=== PATIENT | female | born 1950 | race Caucasian/White ===

== ENCOUNTER → 2019-02-11 | Outpatient (CLI) | payer BC ==
[2019-02-13 15:07] LABS: HPV 16 Negative (Negative); HPV 18 Negative (Negative); HPV OTHER HR TYPES Negative (Negative)
== END | disposition home or self-care (01) ==
LOC: LAB SHORT 16:29 → LAB 16:29
PROVIDERS: Obstetrics & Gynecology Gynecology
DX: Z91.89 Other specified personal risk factors, not elsewhere classified (principal)
CPT/HCPCS: 87624; G0123

== ENCOUNTER 2020-09-14 11:53 | Day surgery (SDC) | payer BC ==
[~2020-09-14] VITALS: Ht 157.5 cm; Wt 70.4 kg
[~2020-09-14 11:53] MED LIST: AMBIEN5 MG PO; ASPIR 8181 MG PO; Bisoprolol Fumar5 MG PO; Crestor40 MG PO; DULO30 PO; Flonase 0.05% N16 GM; LISI5 PO; OLOPATADINE HCL5 ML; OMEP20ER PO
[2020-09-14] MEDS ORDERED: ZYRTEC10 M2 (12:22)
== END 2020-09-14 14:05 | disposition home or self-care (01) ==
LOC: ORSCSDS 11:53
PROVIDERS: Internal Medicine Gastroenterology
PROC: 0DBH8ZX Excision of Cecum, Via Natural or Artificial Opening Endoscopic, Diagnostic (ICD-10-PCS; principal; 2020-09-14 13:00)
DX: Z12.11 Encounter for screening for malignant neoplasm of colon (principal); D12.0 Benign neoplasm of cecum; K57.30 Diverticulosis of large intestine without perforation or abscess without bleeding; Z86.010 Personal history of colon polyps; G47.33 Obstructive sleep apnea (adult) (pediatric); I10 Essential (primary) hypertension; Z79.82 Long term (current) use of aspirin; Z79.899 Other long term (current) drug therapy
CPT/HCPCS: 88305; J2704; J7120

== ENCOUNTER 2022-01-06 18:01 | Inpatient (IN) | payer BC, MEDICARE ==
[~2022-01-06] VITALS: Ht 157.5 cm; Wt 72.0 kg
[~2022-01-06 18:01] MED LIST changes: +ZYRTEC10 M2 PO
[2022-01-06 18:34] LABS: BASOPHILS ABSOLUTE AUTO 0.11 K/mm3 (0.00-0.23); BASOPHILS PERCENT AUTO 1 % (0-2); EOSINOPHILS ABSOLUTE AUTO 0.47 K/mm3 (0.00-0.68); EOSINOPHILS PERCENT AUTO 5 % (0-6); Hemoglobin 13.5 g/dL (11.5-16.0); IMMATURE GRAN ABSOLUTE AUTO 0.04 K/mm3 (0.00-0.10); IMMATURE GRAN PERCENT AUTO 0 % (0-1); LYMPHOCYTES ABSOLUTE AUTO 2.42 K/mm3 (0.84-5.20); LYMPHOCYTES PERCENT AUTO 24 % (21-46); MONOCYTES ABSOLUTE AUTO 0.68 K/mm3 (0.16-1.47); MONOCYTES PERCENT AUTO 7 % (4-13); Mean Corpuscular HGB 31.2 pg (26.0-34.0); Mean Corpuscular HGB Conc 32.9 g/dL (31.5-36.5); Mean Corpuscular Volume 95 fL (80-100); Mean Platelet Volume 9.1 fL (9.1-12.4); NEUTROPHILS ABSOLUTE AUTO 6.52 K/mm3 (1.96-9.15); NEUTROPHILS PERCENT AUTO 64 % (41-73); Platelet Count 182 K/mm3 (150-400); RDW Coefficient Variation 13.2 % (11.7-14.2); RDW Standard Deviation 46.2 fL (35.1-46.3); Red Blood Cell Count 4.33 M/mm3 (3.80-5.20); White Blood Cell Count 10.24 K/mm3 (4.00-11.30)
[2022-01-06 19:09] LABS: Albumin, Blood 3.4 g/dL (3.4-5.0); Bilirubin, Total 0.3 mg/dL (0.1-1.0); Bun/Creatinine Ratio 19.6 (12.0-20.0); Calcium, Blood 8.7 mg/dL (8.5-10.1); Creatinine, Blood 1.07 mg/dL (0.40-1.00); Globulin, Blood 3.3 g/dL (2.2-4.0); Potassium, Blood 4.2 mmol/L (3.5-5.5); Total Protein, Blood 6.7 g/dL (6.4-8.2)
[2022-01-06 23:46] LABS: CPK Creatine Kinase 174 U/L (26-193)
--- NOTE | 2022-01-07 00:24 | NUR ---
PT ARRIVED TO MEDICAL FLOOR AT 2356 WITH BELONGINGS AND ACCOMPANIED BY . NO C/O BLURRED OR LOSS OF VISION AT THIS TIME. NO C/O CP. TELE MONITOR PLACED. ORDER FOR STAT CT; PT TRANSPORTED VIA WHEELCHAIR AND AMBULATED TO CT FOR IMAGING. CALL FROM HEMATOLOGY WITH CRITICAL RESULTS OF TROPONIN OF 539 TRENDING UP FROM 507 WHEN LAST CHECKED. CALL PLACED TO DR ROME.
--- NOTE | 2022-01-07 06:43 | NUR ---
SECURITY SERVICES SPECIALIST SUMMARY: A&Ox4. PLEASANT AND COOPERATIVE WITH CARE. STAT CT DONE LAST NIGHT NEGATIVE FOR INTRACRANIAL PROCESS OR ISCHEMIA. TROPONINS ELEVATED AGAIN LAST NIGHT; DR ROME NOTIFIED. FURTHER WORKUP ORDERED BY PROVIDER FOR THIS AM. NS RUNNING @ 75mL/hr TKO. VSS. TELE NORMAL SINUS RHYTHM WITHOUT INCIDENT. WILL REPORT TO ONCOMING RN.
[2022-01-07 07:37] LABS: BASOPHILS ABSOLUTE AUTO 0.08 K/mm3 (0.00-0.23); BASOPHILS PERCENT AUTO 1 % (0-2); EOSINOPHILS PERCENT AUTO 5 % (0-6); Hemoglobin 13.6 g/dL (11.5-16.0); IMMATURE GRAN ABSOLUTE AUTO 0.03 K/mm3 (0.00-0.10); IMMATURE GRAN PERCENT AUTO 0 % (0-1); LYMPHOCYTES ABSOLUTE AUTO 2.72 K/mm3 (0.84-5.20); LYMPHOCYTES PERCENT AUTO 28 % (21-46); MONOCYTES ABSOLUTE AUTO 0.56 K/mm3 (0.16-1.47); MONOCYTES PERCENT AUTO 6 % (4-13); Mean Corpuscular HGB 31.6 pg (26.0-34.0); Mean Corpuscular HGB Conc 33.2 g/dL (31.5-36.5); Mean Corpuscular Volume 95 fL (80-100); NEUTROPHILS ABSOLUTE AUTO 5.98 K/mm3 (1.96-9.15); NEUTROPHILS PERCENT AUTO 61 % (41-73); Platelet Count 169 K/mm3 (150-400); RDW Coefficient Variation 13.2 % (11.7-14.2); RDW Standard Deviation 46.6 fL (35.1-46.3); Red Blood Cell Count 4.31 M/mm3 (3.80-5.20); White Blood Cell Count 9.87 K/mm3 (4.00-11.30)
[2022-01-07 07:55] LABS: Albumin, Blood 3.1 g/dL (3.4-5.0); Albumin/Globulin Ratio 0.9 (0.8-1.8); Bilirubin, Total 0.4 mg/dL (0.1-1.0); Bun/Creatinine Ratio 16.8 (12.0-20.0); CPK Creatine Kinase 143 U/L (26-193); Calcium, Blood 8.1 mg/dL (8.5-10.1); Creatinine, Blood 1.01 mg/dL (0.40-1.00); Globulin, Blood 3.3 g/dL (2.2-4.0); Total Protein, Blood 6.4 g/dL (6.4-8.2)
[2022-01-07 12:13] LABS: Source, Urine Clean Catch
[2022-01-07 12:15] LABS: Bilirubin, Urine Neg (Neg); Blood, Urine 2+ (Neg); Glucose Qualitative, Urine Neg (Neg); Ketones, Urine Neg (Neg); Leukocyte Esterase, Urine Neg (Neg); Nitrite, Urine Neg (Neg); Protein, Urine Neg (Neg); Specific Gravity, Urine 1.005 (1.003-1.022); Urobilinogen, Urine NORM (Normal)
[2022-01-07 12:21] LABS: Appearance, Urine Clear (Clear); Color, Urine Pale Yellow (P-Yellow)
[2022-01-07 12:23] LABS: Bacteria Few /hpf; Squamous Epithelial Cells Few /hpf (Few); White Blood Cells, Urine 0-2 /hpf (0-5)
[2022-01-07 12:37] LABS: C-Reactive Protein, High Sens. 3.2 mg/L (0.000-3.000)
[2022-01-07 12:38] LABS: Thyroid Stimulating Hormone 1.71 uIU/mL (0.360-4.800)
--- NOTE | 2022-01-07 17:24 | NUR ---
SUMMARY PT RESTING IN BED VISITING WITH HER SPOUSE, PT HAS BEEN PLEASANT AND COOPERATIVE WITH CARE T/O THE DAY, DENIES ANY CHEST PAIN, SOB, OR VISION CHANGES, PT UP WITH MIN ASSIST, HAS BEEN SEEN BY MANA VELOZ AND CHEY, PLAN IS FOR CARDIAC CATH IN AM, VSS WILL CONT TO MONITOR
--- NOTE | 2022-01-07 23:51 | NUR ---
CALL FROM PCU: 6-BEAT RUN OF V-TACH AT 2029 AND 5 BEATS OF VENTRICULAR BIGEMINY AT 2235. PT SLEEPING WHEN CHECKED ON, BUT WAS NOTED TO BE SNORING. REPORTS WEARING CPAP AT HOME BUT DID NOT "WANT TO WORRY ABOUT IT" WHEN ADMITTED LAST NIGHT. CALL TO HOSPITALIST: GIVE METOPROLOL TARTRATE 25MG NOW, CHECK BMP AND MAGNESIUM IN AM AND ORDERED CONTINUOUS PULSE-OX WHILE SLEEPING. IF PT DESATS OR BECOMES SYMPTOMATIC, WILL CONSIDER ADDITION OF OXYGEN THERAPY FOR CPAP. PT UPDATED. CHARGE NURSE NOTIFIED.
--- NOTE | 2022-01-08 04:44 | NUR ---
VETERINARY TECHNOLOGIST SUMMARY: A&Ox4. PLEASANT AND COOPERATIVE WITH CARE. VSS. TELE REPORTED 6-BEAT RUN OF V-TACH AT 2029 AND 5-BEAT RUN OF VENTRICULAR BIGEMINY AT 2235. ASYMPTOMATIC BUT WAS NOTED TO BE COUGHING DURING FIRST EPISODE AND SNORING, HEAVILY DURING SECOND EPISODE. SHE DOES USE CPAP AT HOME BUT DID NOT WANT TO USE WHILE HERE. GIVEN METOPROLOL TARTRATE 25MG AT 0000 AND CONTINUOUS BI-OX ORDERED WHILE SLEEPING PER HOSPITALIST AND LABS WILL BE CHECKED THIS AM. HAS BEEN NPO SINCE MIDNIGHT IN ANTICIPATE OF LEFT HEART DIRECTOR OF UNDERGRADUATE ADMISSIONS TODAY. ADMINISTERED ALPRAZOLAM 0.5MG FOR ANXIETY LAST NIGHT WHICH HELPED HER SLEEP THROUGHOUT THE NIGHT. WILL REPORT TO ONCOMING RN.
[2022-01-08 05:41] LABS: Bun/Creatinine Ratio 22.7 (12.0-20.0); Calcium, Blood 8.2 mg/dL (8.5-10.1); Creatinine, Blood 0.93 mg/dL (0.40-1.00); Magnesium, Blood 2.2 mg/dL (1.6-2.4); Potassium, Blood 3.8 mmol/L (3.5-5.5)
--- NOTE | 2022-01-08 07:49 | NUR ---
PATIENT TO PRODUCTION TEAM MEMBER PATIENT ALERT, ORIENTED, AND INDEPENDENT IN ROOM. DENIES CHEST PAIN, NAUSEA, AND SHORTNESS OF BREATH. PATIENT TRANSFERED TO PRODUCTION TEAM MEMBER FOR ANGIO.
--- NOTE | 2022-01-08 10:42 | NUR ---
Received telephone report from Sergio Ayers on medical. patient to labor/excavator this am. Post labor/excavator, pt to room at approx 0950, bedisde report given. Pt oriented to room and call light. Alert, orientedx4; calm and cooperative with care. Pt reports a headache, medicated x1 per orders. Pt denies chest pain/pressure, sob, nausea, dizziness and numb/tingling. tele sinus 60-70, bp elevated but stable. Ls clear t/o, spo2 >94% on ra, breahting even and unlabored. Abd soft nonteder normoactive bt t/o. TR band in place to right radial site, bruising and hematoma noted to site, outlined, no bleeding noted. Fingers blue tinged, per report this had improved, pt denies numb/tingling to site, cap refill wnl. vss. No other acute changes noted. Will continue to monitor.
[2022-01-08] MEDS ORDERED: AMLO5 PO (14:00)
[2022-01-08] MEDS ORDERED: FAMO20 PO (14:01)
[2022-01-08] MEDS ORDERED: CLOP75 PO (14:01)
[2022-01-08] MEDS ORDERED: PANT40 PO (14:02)
--- NOTE | 2022-01-08 16:45 | NUR ---
Discharge Summary TR band removed per orders. Replaced with tegaderm. Bruising noted starting to spread, hematoma noted, not spreading. No bleeding noted. Pt reports tenderness to right radial site. Bp elevated, notified Dr Bedoya, medicated with norvasc, bp trending down. Other vss. No other acute changes noted. Clarified home prescription for pepcid and protonix, new orders to remove pepcid. Educdated pt and spouse on discharge instrucitons, follow up appointments and medications. Prescriptions faxed to [facility] per patient request. Pt left via wheelchair at approx [phone].
[2022-01-11 12:07] LABS: ANTIMYELOPEROXIDASE (MPO) ABS <0.2 units (0.0-0.9); ANTIPROTEINASE 3 (PR-3) ABS <0.2 units (0.0-0.9); ATYPICAL PANCA <1:20 titer (Neg:<1:20); CYTOPLASMIC (C-ANCA) <1:20 titer (Neg:<1:20); PERINUCLEAR (P-ANCA) <1:20 titer (Neg:<1:20)
[2022-01-12 18:10] LABS: ANCA BY IFA (RDL) Negative (Negative); ANTI-MPO AB (RDL) <20 Units (<20); ANTI-PR-3 AB (RDL) <20 Units (<20)
== END 2022-01-08 16:28 | disposition home or self-care (01) | DRG 123 ==
LOC: ER 18:01 → MEDS 21:48 → PCU 01-07 14:15 → MEDS 01-07 14:15 → PCU 01-07 14:15 → MEDS 01-07 21:49 → PCU 01-08 08:57
PROVIDERS: Internal Medicine; Internal Medicine Cardiovascular Disease; Nurse Practitioner Acute Care; Student in an Organized Health Care Education/Training Program; ADMIT Internal Medicine
PROC: 4A023N7 Measurement of Cardiac Sampling and Pressure, Left Heart, Percutaneous Approach (ICD-10-PCS; principal; 2022-01-08)
PROC: B2111ZZ Fluoroscopy of Multiple Coronary Arteries using Low Osmolar Contrast (ICD-10-PCS; 2022-01-08)
PROC: B240ZZ3 Ultrasonography of Single Coronary Artery, Intravascular (ICD-10-PCS; 2022-01-08)
DX: G45.3 Amaurosis fugax (principal); G81.94 Hemiplegia, unspecified affecting left nondominant side; R77.8 Other specified abnormalities of plasma proteins; I10 Essential (primary) hypertension; E78.00 Pure hypercholesterolemia, unspecified; I34.1 Nonrheumatic mitral (valve) prolapse; F41.8 Other specified anxiety disorders; E66.9 Obesity, unspecified; G47.33 Obstructive sleep apnea (adult) (pediatric); G44.219 Episodic tension-type headache, not intractable; G47.00 Insomnia, unspecified; Z88.8 Allergy status to other drugs, medicaments and biological substances; Z79.899 Other long term (current) drug therapy; Z79.52 Long term (current) use of systemic steroids; Z86.73 Personal history of transient ischemic attack (TIA), and cerebral infarction without residual deficits; Z79.811 Long term (current) use of aromatase inhibitors; Z79.82 Long term (current) use of aspirin; Z79.02 Long term (current) use of antithrombotics/antiplatelets; Z68.28 Body mass index [BMI] 28.0-28.9, adult
CPT/HCPCS: 36415; 70450; 76937; 80048; 80053; 81001; 82550; 83516; 83520; 83735; 84443; 84484; 85025; 85651; 86036; 86037; 86038; 86141; 93005; 93010; 93246; 93306; 93308; 93321; 93454; 93880; 94762; 96372; 99152; 99285-25; A9270; C1769; C1887; C1894; G0378; J1644; J1650; J2250; J7030; J7050; Q9957; Q9967

== ENCOUNTER 2022-03-04 10:35 | Emergency (ER) | payer BC ==
[~2022-03-04 10:35] MED LIST changes: +AMLO5 PO; +CLOP75 PO; +FAMO20 PO; +PANT40 PO
[2022-03-05] MEDS ORDERED: METO25ER PO (11:06)
[2022-03-05] MEDS ORDERED: LOSA50 PO (11:09)
== END 2022-03-04 12:40 | disposition home or self-care (01) ==
DX: S52.502A Unspecified fracture of the lower end of left radius, initial encounter for closed fracture (principal); S52.602A Unspecified fracture of lower end of left ulna, initial encounter for closed fracture; I10 Essential (primary) hypertension; W08.XXXA Fall from other furniture, initial encounter; Z79.82 Long term (current) use of aspirin; Z79.899 Other long term (current) drug therapy; Z88.8 Allergy status to other drugs, medicaments and biological substances

== ENCOUNTER 2022-03-07 11:09 | Day surgery (SDC) | payer BC ==
[~2022-03-07] VITALS: Ht 157.5 cm; Wt 71.2 kg
[~2022-03-07 11:09] MED LIST changes: +LOSA50 PO; +METO25ER PO
--- NOTE | 2022-03-07 12:43 | NUR ---
Ambulatory in Day Surgery. Pre-Op teaching done. Pt verbalizes understanding. Patient confirms NPO status and agrees with scheduled surgery. Patient States Post-Procedure ride home has been arranged. Lungs clear T/O to Auscultation. PT STS SHE DID NOT RECEIVE SHOWER SCRUB/CHLORHEXIDINE PRIOR TO PROCEDURE.
--- NOTE | 2022-03-07 15:12 | NUR ---
ASSUMED CARE. PATIENT AWAKE SITTING UP IN BED. DRINKING WATER AND EATING CRACKERS; TOLERATING WELL. PERCOCET 5/325MG 1 TAB GIVEN PER ORDERS FOR PAIN CONTROL. CONTINUE TO MONITOR.
--- NOTE | 2022-03-07 16:34 | NUR ---
Discharge instructions reviewed with patient. Patient verbalizes understanding. Copy given to patient to take home. Dressing to procedure site clean, dry, intact with no visible drainage, and erythema noted. Some swelling and bruising noted to fingers. Circulation good, cool fingers to touch. Patient up to Ambulate with standby assist. Gait steady. Patient States Post-Procedure ride home has been arranged with Dorinda. Discharged via wheelchair to private car for ride home.
== END 2022-03-07 16:25 | disposition home or self-care (01) ==
LOC: ORSCMMR 11:09 → ORD 12:30 → ORSCMMR 16:25
PROVIDERS: Orthopaedic Surgery
PROC: 0PSJ04Z Reposition Left Radius with Internal Fixation Device, Open Approach (ICD-10-PCS; principal; 2022-03-07 12:30)
DX: S52.552A Other extraarticular fracture of lower end of left radius, initial encounter for closed fracture (principal); I10 Essential (primary) hypertension; E78.5 Hyperlipidemia, unspecified; K21.9 Gastro-esophageal reflux disease without esophagitis; Z86.73 Personal history of transient ischemic attack (TIA), and cerebral infarction without residual deficits; Z79.02 Long term (current) use of antithrombotics/antiplatelets; Z79.899 Other long term (current) drug therapy; Z79.82 Long term (current) use of aspirin
CPT/HCPCS: 73100; A9270; C1713; J0690; J1100; J1885; J2250; J2370; J2405; J2704; J2765; J2795; J3010; J7120

== ENCOUNTER 2022-12-14 08:57 | Day surgery (SDC) | payer OTHER ==
[~2022-12-14] VITALS: Ht 157.5 cm; Wt 75.9 kg
--- NOTE | 2022-12-14 08:00 | NUR ---
12/14/22 0800 Donna Carrero 20ML OF ROPIVACAINE 0.5% MIXED AND VERIFIED WITH 0.1ML OF EPI (1MG/ML) TO MAKE ROPIVACAINE 0.5% WITH EPI 1:200,000 [facility] BY DR WOLFE.
[~2022-12-14 08:57] MED LIST changes: +LORA10ER PO
[2022-12-14 09:16] VITALS: BP 121/79
--- NOTE | 2022-12-14 10:26 | NUR ---
12/14/22 1026 Ponce Su IV REMOVED INTACT. SITE WNL. PT REPORTS 1/10 R HAND/WRIST PAIN BUT DESCRIBES PAIN TOLERABLE.
== END 2022-12-14 10:24 | disposition home or self-care (01) ==
LOC: ORSCSDS 08:57
PROVIDERS: Orthopaedic Surgery
PROC: 0LN70ZZ Release Right Hand Tendon, Open Approach (ICD-10-PCS; principal; 2022-12-14 07:30)
PROC: 0PPH04Z Removal of Internal Fixation Device from Right Radius, Open Approach (ICD-10-PCS; principal; 2022-12-14 07:30)
DX: M65.341 Trigger finger, right ring finger (principal); T84.84XA Pain due to internal orthopedic prosthetic devices, implants and grafts, initial encounter; I10 Essential (primary) hypertension; I25.2 Old myocardial infarction; E78.5 Hyperlipidemia, unspecified; G47.33 Obstructive sleep apnea (adult) (pediatric); K21.9 Gastro-esophageal reflux disease without esophagitis; Z86.73 Personal history of transient ischemic attack (TIA), and cerebral infarction without residual deficits; F41.8 Other specified anxiety disorders; Z79.02 Long term (current) use of antithrombotics/antiplatelets; Z79.899 Other long term (current) drug therapy
CPT/HCPCS: J0171; J0690; J1100; J1170; J1885; J2250; J2371; J2405; J2704; J2795; J7120

== ENCOUNTER 2023-10-07 08:17 | Day surgery (SDC) | payer OTHER ==
[~2023-10-07] VITALS: Ht 157.5 cm; Wt 78.0 kg
[2023-10-07] VITALS (13 sets, daily range): BP systolic 105–141; BP diastolic 60–83
[~2023-10-07 08:17] MED LIST changes: +Ambien5 MG PO; +EZET10 PO; +MULVITA PO; +Pataday2.5 ML BOTHEYES; +VITAMIN D2 PO
[2023-10-07] MEDS ORDERED: Lactated Ringer's 1,000 ML IV SCH (08:35)
[2023-10-07] MEDS ORDERED: CeFAZolin Sodium 2,000 MG in NS 100 ML IV SCH (08:35)
[2023-10-07] MEDS ORDERED: propofoL 20 ML IV ONE (09:09)
[2023-10-07] MEDS ORDERED: Rocuronium Bromide 10 MG/ML 5ML Injection IV ONE (09:09)
[2023-10-07] MEDS ORDERED: FentaNYL Citrate 50 MCG/ML 2 ML Injection ONE (09:09)
[2023-10-07] MEDS ORDERED: Lidocaine HCl 2% Jelly 120MG/6ML SYR (20MG PER ML) ONE (09:12)
[2023-10-07] MEDS ORDERED: Lidocaine HCl 1% 5 ML SYR INJ ONE (09:40)
[2023-10-07] MEDS ORDERED: HYDROmorphone HCl/Pf 1MG SYR IV PRN (09:40)
[2023-10-07] MEDS ORDERED: Ondansetron HCl 2 MG / ML 2ML Vial IV PRN (09:40)
[2023-10-07] MEDS ORDERED: Midazolam HCl 1MG / ML 2ML Vial IV ONE (09:40)
--- NOTE | 2023-10-07 09:41 | NUR ---
Ambulatory in Day Surgery History, Chart, Medications and Allergies reviewed before start of procedure. Pre-Op teaching done. Pt verbalizes understanding. Patient States Post-Procedure ride home has been arranged.
[2023-10-07] MEDS ORDERED: Bupivacaine 0.5% HCl 5 MG/ML 30MLVIAL ONE (10:20)
[2023-10-07] MEDS ORDERED: HYDROmorphone HCl/Pf 1MG SYR ONE (10:24)
[2023-10-07] MEDS ORDERED: Dexamethasone Sod Phos 10 MG/ML 1ML VIAL ONE (10:43)
[2023-10-07] MEDS ORDERED: Ondansetron HCl 2 MG / ML 2ML Vial ONE (10:43)
[2023-10-07] MEDS ORDERED: Sugammadex Sodium 200 MG/2ML SDV (100 MG/ML) ONE (10:53)
[2023-10-07] MEDS ORDERED: Metoclopramide HCl 5MG / ML 2ML Vial ONE (11:03)
[2023-10-07] MEDS ORDERED: HYDROcodone 5-APAP 325 TAB PO PRN (11:40)
--- NOTE | 2023-10-07 12:13 | NUR ---
PT TO DAY SURGERY STEP DOWN FROM PACU; BEDSIDE REPORT RECEIVED. PT IS AWAKE, ALERT AND ORIENED; ABLE TO MOVE SELF IN BED. VSS. PT DENIES PAIN AT THIS TIME. PT HAS 1 INCISION SITE ON UMBILLCUS THAT HAS GUAZE COVERED WITH TEGADERM AND IT IS C/D/I. PT IS TOLERAING ICE CHIPS. NO COMPLAINTS AT THIS TIME.
--- NOTE | 2023-10-07 12:33 | NUR ---
PT DECLINES FLUIDS, IS HAPPY WITH ICE CHIPS. DECLINES CRACKERS. ICE PACK TO INCISION. INCISION REMAINS C/D/I.
--- NOTE | 2023-10-07 12:44 | NUR ---
REPORT OFF TO RAJENDRA HERNANDEZ
--- NOTE | 2023-10-07 13:12 | NUR ---
PATIENT SITTIN UP IN [place] WITH SPOUSE AT BEDSIDE, TOLERATING SIPS OF WATER. ANALGESIC GIVEN FOR C/O PAIN TO MIDDLE ABDOMEN. NO OTHER C/O VERBALIZED. Discharge instructions reviewed with patient. Patient verbalizes understanding. Copy given to patient to take home. Confirmed with Dr. Coleman patient to resume previously prescribed plavix today.
--- NOTE | 2023-10-07 13:28 | NUR ---
1323- UP TO DRESS. GAIT STEADY.
== END 2023-10-07 13:32 | disposition home or self-care (01) ==
LOC: ORSCMMR 08:17 → ORD 09:45 → ORSCMMR 09:45
PROVIDERS: Surgery
PROC: 0WUF0JZ Supplement Abdominal Wall with Synthetic Substitute, Open Approach (ICD-10-PCS; principal; 2023-10-07 09:45)
DX: K43.6 Other and unspecified ventral hernia with obstruction, without gangrene (principal); I10 Essential (primary) hypertension; K21.9 Gastro-esophageal reflux disease without esophagitis; Z79.02 Long term (current) use of antithrombotics/antiplatelets; Z79.899 Other long term (current) drug therapy
CPT/HCPCS: A9270; C1781; J0690; J1100; J1170; J2250; J2405; J2704; J2765; J3010; J7120

== ENCOUNTER → 2025-02-26 | Outpatient (CLI) | payer OTHER ==
[2025-02-26 12:55] LABS: Source, Urine Clean Catch
[2025-02-26 15:41] LABS: Bilirubin, Urine Neg (Neg); Color, Urine Yellow (P-Yellow); Glucose Qualitative, Urine 4+ (Neg); Ketones, Urine Neg (Neg); Leukocyte Esterase, Urine 1+ (Neg); Protein, Urine 1+ (Neg); Specific Gravity, Urine 1.015 (1.003-1.022); Urobilinogen, Urine NORM (Normal)
== END ==
LOC: LAB SHORT 12:54 → LAB 12:54
PROVIDERS: Internal Medicine
DX: E88.09 Other disorders of plasma-protein metabolism, not elsewhere classified (principal)
CPT/HCPCS: 81001; 87086

== ENCOUNTER → 2025-03-08 | Outpatient (CLI) | payer OTHER ==
[2025-03-08 23:32] LABS: Protein, Urine Quantitative 16.7 mg/dL (0.0-11.9)
== END ==
LOC: LAB SHORT 11:00 → LAB 11:00
PROVIDERS: Internal Medicine
DX: R31.9 Hematuria, unspecified (principal); R80.9 Proteinuria, unspecified
CPT/HCPCS: 82570; 84156